=== PATIENT | male | born 1985 | race Caucasian/White ===

== ENCOUNTER 2025-05-13 12:06 | Emergency (ER) | payer SELFPAY ==
[~2025-05-13] VITALS: Ht 177.8 cm; Wt 77.0 kg
[2025-05-13 12:12] VITALS: O2SAT 98
[2025-05-13] MEDS: KETOROLAC 15MG/ML VIAL IM ONE (12:45)
[2025-05-13] MEDS: LIDOCAINE HCL 1% 20ML VIAL INFIL ONE (12:45)
[2025-05-13] MEDS ORDERED: SULF1TAB48 MT (14:36)
[2025-05-13] MEDS ORDERED: IBUP-2028 MT (14:37)
[2025-05-13] MEDS: SULFAMETHOXAZOLE/TRIMETHOPRIM 800/160MG TABLET PO ONE (14:54)
[2025-05-13] MEDS: HYDROCODONE/ACETAMINOPHEN 5/325MG TABLET PO ONE (14:54)
[2025-05-13 14:59] VITALS: BP 130/89; PULSE 95; RESP 18; TEMP 36.7; O2SAT 100
== END 2025-05-13 15:22 | disposition home or self-care (01) ==
LOC: ER 12:49
DX: L02.411 Cutaneous abscess of right axilla (principal); F20.9 Schizophrenia, unspecified; Z79.899 Other long term (current) drug therapy
CPT/HCPCS: 99283; 10060; 96372; J1885; J2003